=== PATIENT | male | born 1990 | race Caucasian/White ===

== ENCOUNTER 2016-08-30 11:10 | Emergency (ER) | payer SELFPAY ==
[~2016-08-30] VITALS: Ht 175.3 cm; Wt 65.8 kg
--- NOTE | 2016-08-30 11:29 | ED EENT ---
History of Present Illness General Stated Complaint: R EAR UNK FOREIGN OBJECT Source: patient Exam Limitations: no limitations History of Present Illness Time seen by provider: 11:28 Initial Comments PATIENT AWAKENED THIS MORNING WITH SENSATION OF FOREIGN BODY IN THE RIGHT EAR. uSE WATER AT HOME TO ATTEMPT TO REMOVE THIS. Timing/Duration: abrupt Severity: moderate Location: ear (R) Associated Symptoms: denies symptoms Allergies and Home Medications Allergies Coded Allergies: No Known Drug Allergies (Unverified , 04/23/11) Review of Systems Constitutional: see HPI Eyes: No Symptoms Reported Ears: See HPI Nose: no symptoms reported Mouth: no symptoms reported Throat: no symptoms reported Respiratory: no symptoms reported Cardiovascular: no symptoms reported Musculoskeletal: no symptoms reported Past Mjkwlxb-Hvztbi-Jnwoel Hx Patient Social History Recent Foreign Travel: No Contact w/Someone Who Travel: No Physical Exam General Appearance: WD/WN, no apparent distress Eyes: bilateral eye EOMI, bilateral eye PERRL, bilateral eye normal inspection Ears: right ear other (there is a cockroach in the external ear canal easily removed with alligator forceps), bilateral ear TM normal, bilateral ear auricle normal Neck: non-tender, full range of motion Respiratory: no respiratory distress, no accessory muscle use Gastrointestinal: normal bowel sounds, non tender, soft Neurologic/Psychiatric: alert, normal mood/affect, oriented x 3 Skin: normal color, warm/dry Departure Impression Impression: Primary Impression: Ear foreign body Disposition: 01 HOME, SELF-CARE Condition: Stable Departure-Patient Inst. Decision time for Depature: 11:29 Referrals: NO,LOCAL PHYSICIAN (PCP/Family) Primary Care Physician Patient Instructions: Foreign Body in Ear, Child Add. Discharge Instructions: 1. Antibiotic drops as directed Return to ER for any worsening Scripts Ciprofloxacin HCl/Dexameth (Ciprodex Otic Suspension) 7.5 Ml Soln 4 DROPS OT BID, #10 EA Prov: BECKI ZAMORA [employer] 08/30/16 BECKI ZAMORA [employer] Aug 30, 2016 11:29
[2016-08-30] MEDS ORDERED: NF-CIPDEC OT (11:30)
[2016-08-30 16:00] VITALS: BP 129/82
== END 2016-08-30 11:45 | disposition home or self-care (01) ==
LOC: EDUNIT# 11:10 → ER 11:12
DX: T16.1XXA Foreign body in right ear, initial encounter (principal)
CPT/HCPCS: 99282

== ENCOUNTER 2017-06-14 16:10 | Emergency (ER) | payer OTHER ==
[~2017-06-14] VITALS: Ht 185.4 cm; Wt 82.6 kg
[~2017-06-14 16:10] MED LIST: NF-CIPDEC OT
--- NOTE | 2017-06-14 17:11 | ED EENT ---
History of Present Illness General Chief Complaint: Eye Problems Stated Complaint: PINK EYE, BOTH EYES Nursing Triage Note: PT CO OF HAVING PINK EYE, EYES REDDEND BILATERALLY, HAVE CRUSTING, AND IRRITATION FOR 2 DAYS Source: patient Exam Limitations: no limitations History of Present Illness Date Seen by Provider: Jun 14, 2017 Time Seen by Provider: 17:11 Initial Comments 26-year-old male patient presents to the emergency department with complaints of possible pinkeye for 2 days. Timing/Duration: gradual Location: eye (R), eye (L) Prearrival Treatment: flushing eyes Allergies and Home Medications Allergies Coded Allergies: No Known Drug Allergies (Unverified , 04/23/11) Home Medications Tobramycin 5 Ml Drops, 2 DROPS OP Q4H Prescribed by: DMITRIY MAGAÑA on 06/14/17 3984 Patient Home Medication List Home Medication List Reviewed: Yes Review of Systems Constitutional: no symptoms reported Eyes: See HPI, Denies Blurred Vision, Drainage, Denies Decreased Acuity, Denies Foreign Body Sensation, Inflammation, Denies Pain, Denies Photophobia, Glasses Ears: No Symptoms Reported Nose: no symptoms reported Mouth: no symptoms reported Throat: no symptoms reported Respiratory: no symptoms reported Skin: no symptoms reported Neurological: No Symptoms Reported All Other Systems Reviewed Negative Unless Noted: Yes (Negative excepted noted.) Past Presoea-Qjfnkk-Bapjaw Hx Patient Social History Alcohol Use: Denies Use Recreational Drug Use: No Smoking Status: Never a Smoker 2nd Hand Smoke Exposure: No Recent Foreign Travel: No Contact w/Someone Who Travel: No Recent Infectious Disease Expo: No Recent Hopitalizations: No Physical Abuse: No Sexual Abuse: No Seasonal Allergies Seasonal Allergies: No Past Medical History Surgeries: No Respiratory: No Neurological: No Gastrointestinal: No Nursing Suicide Risk Score: 0 Family Medical History Reviewed and Corrections made No Pertinent Family Hx Physical Exam Vital Signs Vital Signs - First Documented 06/14/17 16:50 Temp 98.3 Pulse 80 Resp 18 B/P (MAP) 140/73 (95) Pulse Ox 95 General Appearance: WD/WN, no apparent distress Eyes: bilateral eye PERRL, bilateral eye EOMI, bilateral eye conjunctival inflammation, bilateral eye other (green drainage noted from the bilateral eyes. ) Ears: bilateral ear auricle normal, bilateral ear canal normal, bilateral ear TM normal Nose: normal inspection Mouth/Throat: normal mouth inspection, pharynx normal Neck: non-tender, supple, normal inspection Cardiovascular: regular rate, rhythm, no murmur Respiratory: lungs clear, normal breath sounds, no respiratory distress, no accessory muscle use Neurologic/Psychiatric: alert, normal mood/affect, oriented x 3 Skin: normal color, warm/dry Progress/Results/Core Measures Vital Signs/I&O 06/14/17 06/14/17 16:50 17:35 Temp 98.3 98.3 Pulse 80 80 Resp 18 18 B/P (MAP) 140/73 (95) 140/73 (95) Pulse Ox 95 95 Blood Pressure Mean: 95 Departure Impression Primary Impression: Conjunctivitis Qualified Codes: H10.33 - Unspecified acute conjunctivitis, bilateral Disposition: 01 HOME, SELF-CARE Condition: Improved Departure-Patient Inst. Decision time for Depature: 17:23 Referrals: NO,LOCAL PHYSICIAN (PCP) Primary Care Physician Patient Instructions: Conjunctivitis (Pinkeye) (DC) Add. Discharge Instructions: All discharge instructions reviewed with patient and/or family. Voiced understanding. Medications as instructed. Tylenol [id number] as directed for pain. Ibuprofen 800 mg by mouth every 8 hours as needed for pain. Use a warm, clean washcloth to wipe the eyes twice daily and as needed. Avoid cross contamination between the eyes by using clean washcloths. Follow- up with the configuration management administrator or cable ferry operator of your choice for recheck as an outpatient this week. Return to the emergency department for worsened symptoms or any other concerns. Scripts Tobramycin (Tobramycin) 5 Ml Drops 2 DROPS OP Q4H for 10 Days, #1 EA 0 Refills Prov: DMITRIY MAGAÑA 06/14/17 DMITRIY MAGAÑA Jun 14, 2017 17:11
[2017-06-14] MEDS ORDERED: TBR.3OP51 OP ×2 (17:23→17:27)
[2017-06-14 17:35] VITALS: BP 140/73
== END 2017-06-14 17:35 | disposition home or self-care (01) ==
LOC: EDUNIT# 16:10 → ER 16:12
DX: H10.9 Unspecified conjunctivitis (principal)
CPT/HCPCS: 99282

== ENCOUNTER 2018-08-02 21:27 | Emergency (ER) | payer SELFPAY ==
[~2018-08-02] VITALS: Ht 188 cm; Wt 86.2 kg
[~2018-08-02 21:27] MED LIST changes: +TBR.3OP51 OP
[2018-08-02] MEDS ORDERED: CYCLOBENZAPRINE 10 MG (FLEXERIL) TAB PO SCH (21:45)
[2018-08-02] MEDS ORDERED: KETOROLAC 60 MG/2 ML VIAL IM ONE (21:45)
--- NOTE | 2018-08-02 21:58 | ED Neck-Back Pain/Injury ---
General Chief Complaint: Head/Cervical Problems Stated Complaint: NECK PAIN Nursing Triage Note: RIGHT SIDED NECK PAIN, NO INJURY Nursing Sepsis Screen: No Definite Risk Source of Information: Patient Exam Limitations: No Limitations History of Present Illness Date Seen by Provider: August 02, 2018 Time Seen by Provider: 21:37 Initial Comments 27-year-old male who presents to the emergency room with complaints of right- sided neck pain that started around 6:30 this morning when he woke up. He believes he slept on his neck wrong. He denies injury. Location: C-Spine Timing/Duration: 12-24 Hours Severity: Moderate Pain/Injury Location: Neck Associated Symptoms: denies symptoms Allergies and Home Medications Allergies Coded Allergies: No Known Drug Allergies (Unverified , 04/23/11) Patient Home Medication List Home Medication List Reviewed: Yes Review of Systems Constitutional: see HPI; No chills, No fever Musculoskeletal: see HPI, neck pain All Other Systems Reviewed Negative Unless Noted: Yes Past Kvqluku-Qwfejj-Dvdqwj Hx Past Med/Social Hx: Reviewed Nursing Past Med/Soc Hx Patient Social History Alcohol Use: Denies Use Recreational Drug Use: No Smoking Status: Never a Smoker 2nd Hand Smoke Exposure: Yes Recent Foreign Travel: No Contact w/Someone Who Travel: No Recent Infectious Disease Expo: No Recent Hopitalizations: No Immunizations Up To Date Tetanus Booster (TDap): Unknown Seasonal Allergies Seasonal Allergies: No Past Medical History Surgeries: No Respiratory: No Cardiac: No Neurological: No Genitourinary: No Gastrointestinal: No Musculoskeletal: No Endocrine: No HEENT: No Cancer: No Psychosocial: No Integumentary: No Blood Disorders: No Family Medical History Reviewed Nursing Family Hx No Pertinent Family Hx Physical Exam Vital Signs Vital Signs - First Documented 08/02/18 21:30 Temp 98.0 Pulse 85 Resp 18 B/P (MAP) 146/68 (94) Pulse Ox 98 O2 Delivery Room Air Capillary Refill : Less Than 3 Seconds Height, Weight, BMI Height: 6'2.00" Weight: 190lbs. oz. 86.416844kr; BMI Method:Stated General Appearance: No Apparent Distress, WD/WN Neck: Full Range of Motion, Normal Inspection, Non Tender, Supple Cardiovascular: Regular Rate, Rhythm, No Edema, No Gallop, No JVD, No Murmur, Normal Peripheral Pulses Respiratory: Chest Non Tender, Lungs Clear, Normal Breath Sounds, No Accessory Muscle Use, No Respiratory Distress, Accessory Muscle Use Extremity: Normal Capillary Refill Neurologic/Psychiatric: Alert, Oriented x3, Normal Mood/Affect Skin: Normal Color, Warm/Dry Progress/Results/Core Measures Results/Orders My Orders Orders - EDWARD BELLE Ketorolac Injection (Toradol Injection) (08/02/18 21:45) Cyclobenzaprine Tablet (Flexeril Tablet) (08/02/18 21:45) Medications Given in ED Current Medications Medications Dose Ordered Sig/Rod Route Start Time Stop Time Status Last Admin Dose Admin Ketorolac Tromethamine 60 mg ONCE ONCE IM 08/02/18 21:45 08/02/18 21:46 DC 08/02/18 21:44 60 MG Vital Signs/I&O 08/02/18 08/02/18 21:30 21:44 Temp 98.0 98.0 Pulse 85 Resp 18 B/P (MAP) 146/68 (94) Pulse Ox 98 O2 Delivery Room Air Blood Pressure Mean: 94 Progress Progress Note : Time: 22:10 Progress Note I have seen and evaluated the patient. His symptoms have improved after medication use. He agrees with plan of care, plans for discharge, return precautions were given. Departure Impression Primary Impression: Neck pain Disposition: 01 HOME, SELF-CARE Condition: Stable/Unchanged Departure-Patient Inst. Decision time for Depature: 22:09 Referrals: NO,LOCAL PHYSICIAN (PCP/Family) Primary Care Physician Patient Instructions: Neck Pain Add. Discharge Instructions: You may alternate ice and heat at 20 minute intervals. Take medication as directed. You may use ibuprofen and Tylenol as directed by the bottle for pain relief. Return back to the emergency room for worsening symptoms or concerns as needed. Follow-up with her primary care provider as needed. All discharge instructions reviewed with patient and/or family. Voiced understanding. Scripts Cyclobenzaprine HCl (Cyclobenzaprine HCl) 10 Mg Tablet 10 MG PO Q8H PRN for SPASMS, #15 TAB 0 Refills Prov: EDWARD BELLE 08/02/18 Work/School Note: Work Release Form Date Seen in the Emergency Department: August 02, 2018 Return to Work: August 03, 2018 Restrictions: No Restrictions EDWARD BELLE August 02, 2018 21:58
[2018-08-02] MEDS ORDERED: CYCL10TA9 PO (22:10)
[2018-08-02 22:13] VITALS: BP 146/68
== END 2018-08-02 22:12 | disposition home or self-care (01) ==
LOC: EDUNIT# 21:27 → ER 21:28
DX: M54.2 Cervicalgia (principal); Z77.22 Contact with and (suspected) exposure to environmental tobacco smoke (acute) (chronic)
CPT/HCPCS: 96372; 99284

== ENCOUNTER 2018-08-09 15:53 | Emergency (ER) | payer SELFPAY ==
[~2018-08-09] VITALS: Ht 180.3 cm; Wt 86.2 kg
[~2018-08-09 15:53] MED LIST changes: +CYCL10TA9 PO
[2018-08-09] MEDS ORDERED: NAPR-1071 PO (16:22)
[2018-08-09] MEDS ORDERED: CYCL10TA9 PO (16:22)
--- NOTE | 2018-08-09 16:23 | ED Back Pain ---
General Chief Complaint: Back Problems Stated Complaint: BACK PAIN Nursing Triage Note: THE PT IS AMBULATORY TO THE ROOM WITHOUT DIFFICULTY. NO DISTRESS IS SEEN ON ARRIVAL. LOC IS NORMAL FOR THE PT. THE REPORTS NO RECENT INJURY. Nursing Sepsis Screen: No Definite Risk Source of Information: Patient Exam Limitations: No Limitations History of Present Illness Date Seen by Provider: Aug 09, 2018 Time Seen by Provider: 16:19 Initial Comments To ER with reports of low back pain that is midline and somewhat to the right side low back. It does not radiate down either legs, no fevers or chills, no IV drug use no history of cancer no loss of sensation of genitals, no loss of control of bowel or bladder. He got L no preceding trauma. States that he works at [employer] and was told not come back until he is working releasing him. This pain began at 11 PM last night Location: Lumbar Spine, Paraspinous Muscles Timing/Duration: 1-2 Days Severity: Moderate Associated Symptoms: lower back pain Allergies and Home Medications Allergies Coded Allergies: No Known Drug Allergies (Unverified , 04/23/11) Home Medications Cyclobenzaprine HCl 10 Mg Tablet, 10 MG PO Q8H PRN for SPASMS Prescribed by: EDWARD BELLE on 08/02/18 2210 Patient Home Medication List Home Medication List Reviewed: Yes Review of Systems Constitutional: see HPI EENTM: see HPI Respiratory: no symptoms reported Cardiovascular: no symptoms reported Genitourinary: no symptoms reported Musculoskeletal: see HPI, back pain Skin: no symptoms reported Psychiatric/Neurological: No Symptoms Reported Past Wddzbnp-Gfcyez-Qlpmum Hx Patient Social History 2nd Hand Smoke Exposure: Yes Recent Foreign Travel: No Contact w/Someone Who Travel: No Recent Infectious Disease Expo: No Recent Hopitalizations: No Physical Abuse: No Sexual Abuse: No Mistreated: No Fear: No Immunizations Up To Date Tetanus Booster (TDap): Unknown Seasonal Allergies Seasonal Allergies: No Past Medical History Surgeries: No Respiratory: No Cardiac: No Neurological: No Genitourinary: No Gastrointestinal: No Musculoskeletal: No Endocrine: No HEENT: No Cancer: No Psychosocial: No Integumentary: No Blood Disorders: No Family Medical History No Pertinent Family Hx Physical Exam Vital Signs Vital Signs - First Documented 08/09/18 16:06 Temp 98.5 Pulse 83 Resp 16 B/P (MAP) 118/75 (89) Capillary Refill : Less Than 3 Seconds Height, Weight, BMI Height: 5'11.00" Weight: 190lbs. oz. 86.096794nq; BMI Method:Estimated General Appearance: No Apparent Distress, WD/WN Respiratory: No Accessory Muscle Use, No Respiratory Distress Gastrointestinal: Non Tender, Soft Back: Normal Inspection Extremity: Normal Capillary Refill, Normal Inspection Neurologic/Psychiatric: Alert, Oriented x3 Skin: Normal Color, Warm/Dry Progress/Results/Core Measures Results/Orders Vital Signs/I&O 08/09/18 16:06 Temp 98.5 Pulse 83 Resp 16 B/P (MAP) 118/75 (89) Blood Pressure Mean: 89 Departure Impression Primary Impression: Acute low back pain Qualified Codes: M54.5 - Low back pain Disposition: 01 HOME, SELF-CARE Condition: Stable Departure-Patient Inst. Decision time for Depature: 16:20 Referrals: NO,LOCAL PHYSICIAN (PCP/Family) Primary Care Physician Patient Instructions: Low Back Pain (DC) Add. Discharge Instructions: 1. Warm compresses to this area 2. Medication as directed 3. Follow-up with your doctor next week. If you do not have one. He he'll be contacted at [phone]. All discharge instructions reviewed with patient and/or family. Voiced understanding. Scripts Naproxen (Naprosyn) 500 Mg Tablet 500 MG PO BID PRN for PAIN-MODERATE TO SEVERE, #30 TAB 0 Refills Prov: BECKI ZAMORA APRN 08/09/18 Cyclobenzaprine HCl (Cyclobenzaprine HCl) 10 Mg Tablet 10 MG PO Q8H PRN for SPASMS, #15 TAB 0 Refills Prov: BECKI ZAMORA APRN 08/09/18 Work/School Note: Work Release Form Date Seen in the Emergency Department: Aug 09, 2018 Return to Work: Aug 11, 2018 Restrictions: No Restrictions Images Torso/Trunk 1 - Other-See Progress Note BECKI ZAMORA APRN Aug 09, 2018 16:23
[2018-08-09 16:30] VITALS: BP 118/75
== END 2018-08-09 16:30 | disposition home or self-care (01) ==
LOC: EDUNIT# 15:53 → ER 15:54
DX: M54.5 Low back pain (principal); Z77.22 Contact with and (suspected) exposure to environmental tobacco smoke (acute) (chronic)
CPT/HCPCS: 99281

== ENCOUNTER 2018-08-16 20:39 | Emergency (ER) | payer SELFPAY ==
[~2018-08-16] VITALS: Ht 188 cm; Wt 93.0 kg
[~2018-08-16 20:39] MED LIST changes: +NAPR-1071 PO
[2018-08-16] MEDS ORDERED: IBUPROFEN 800 MG (MOTRIN) TAB PO STA (21:18)
--- NOTE | 2018-08-16 21:29 | Diagnostic Imaging Report ---
INDICATION: Intermittent left ankle pain starting 3 days ago. No injury. TECHNIQUE: Three views of the left ankle CORRELATION STUDY: None FINDINGS: The bony alignment is anatomic. The talar dome is intact. The ankle mortise is maintained. There is no acute fracture or dislocation. Soft tissues are unremarkable. IMPRESSION: Negative for acute bony abnormality of the ankle. Dictated by: Dictated on workstation # [id number]
--- NOTE | 2018-08-16 22:16 | ED Lower Extremity ---
General Chief Complaint: Lower Extremity Stated Complaint: L ANKLE PAIN Nursing Triage Note: PT COMPLAINING OF INTERMITTENT LEFT ANKLE PAIN THAT STARTED 3 DAYS AGO, NO INJURY Nursing Sepsis Screen: No Definite Risk History of Present Illness Date Seen by Provider: Aug 16, 2018 Time Seen by Provider: 21:15 Initial Comments 27-year-old male presents for left ankle pain. He states it began 3 days ago without injury. He denies any past history of ankle problems. He has had Tylenol with minimal improvement in his symptoms. Pain/Injury Location: left ankle Method of Injury: unknown Allergies and Home Medications Allergies Coded Allergies: No Known Drug Allergies (Unverified , 04/23/11) Home Medications Cyclobenzaprine HCl 10 Mg Tablet, 10 MG PO Q8H PRN for SPASMS Prescribed by: EDWARD BELLE on 08/02/18 221 Cyclobenzaprine HCl 10 Mg Tablet, 10 MG PO Q8H PRN for SPASMS Prescribed by: BECKI ZAMORA on 08/09/18 162 Naproxen 500 Mg Tablet, 500 MG PO BID PRN for PAIN-MODERATE TO SEVERE Prescribed by: BECKI ZAMORA on 08/09/18 1622 Patient Home Medication List Home Medication List Reviewed: Yes Review of Systems Constitutional: no symptoms reported, see HPI Musculoskeletal: see HPI, joint pain (left ankle) All Other Systems Reviewed Negative Unless Noted: Yes Past Hsvqyox-Urkovi-Prieyc Hx Past Med/Social Hx: Reviewed Nursing Past Med/Soc Hx Patient Social History 2nd Hand Smoke Exposure: Yes Recent Foreign Travel: No Contact w/Someone Who Travel: No Recent Infectious Disease Expo: No Recent Hopitalizations: No Immunizations Up To Date Tetanus Booster (TDap): Unknown Seasonal Allergies Seasonal Allergies: No Past Medical History Surgeries: No Respiratory: No Cardiac: No Neurological: No Genitourinary: No Gastrointestinal: No Musculoskeletal: No Endocrine: No HEENT: No Cancer: No Psychosocial: No Integumentary: No Blood Disorders: No Family Medical History No Pertinent Family Hx Physical Exam Vital Signs Vital Signs - First Documented 08/16/18 20:55 Temp 98.5 Pulse 73 Resp 18 B/P (MAP) 122/63 (82) Pulse Ox 98 O2 Delivery Room Air Capillary Refill : Less Than 3 Seconds Height, Weight, BMI Height: 6'2.00" Weight: 205lbs. oz. 92.130390ly; BMI Method:Stated General Appearance: WD/WN, no apparent distress Cardiovascular: normal peripheral pulses, regular rate, rhythm Respiratory: chest non-tender, lungs clear Ankles: left ankle non-tender, left ankle normal inspection, left ankle normal range of motion, left ankle no evidence of injury Neurologic/Psychiatric: no motor/sensory deficits, alert, normal mood/affect, oriented x 3 Skin: normal color, warm/dry Progress/Results/Core Measures Results/Orders My Orders Orders - OMA CHRISTOPHER Ankle, Left, 3 Views (08/16/18 21:11) Ibuprofen Tablet (Motrin Tablet) (08/16/18 21:18) Vital Signs/I&O 08/16/18 08/16/18 20:55 22:21 Temp 98.5 Pulse 73 70 Resp 18 16 B/P (MAP) 122/63 (82) 122/63 (82) Pulse Ox 98 99 O2 Delivery Room Air Room Air Blood Pressure Mean: 82 Diagnostic Imaging Diagonstic Imaging: Xray Plain Films/CT/US/NM/MRI: ankle Comments NAME: ANAIS BLAIR [facility] REC#: [id number] PT STATUS: REG ER : 1990 PHYSICIAN: OMA CHRISTOPHER ADMIT DATE: 08/16/18/ER Signed Date of Exam: 08/16/18 ANKLE, LEFT, 3 VIEWS INDICATION: Intermittent left ankle pain starting 3 days ago. No injury. TECHNIQUE: Three views of the left ankle CORRELATION STUDY: None FINDINGS: The bony alignment is anatomic. The talar dome is intact. The ankle mortise is maintained. There is no acute fracture or dislocation. Soft tissues are unremarkable. IMPRESSION: Negative for acute bony abnormality of the ankle. Dictated by: Dictated on workstation # [id number] Dict: 08/16/[id number] Trans: 08/16/182152 Interpreted by: MIA YEUNG DO Electronically signed by: MIA YEUNG DO 08/16/182152 Reviewed: Reviewed by Me Departure Impression Primary Impression: Left ankle pain Qualified Codes: M25.572 - Pain in left ankle and joints of left foot Disposition: HOME, SELF-CARE Condition: Improved Departure-Patient Inst. Decision time for Depature: 22:00 Referrals: NO,LOCAL PHYSICIAN (PCP/Family) Primary Care Physician Patient Instructions: Ankle Sprain (DC) Add. Discharge Instructions: Ice to left ankle 20 minutes every 2 hours while awake. Use Chepe wrap for the next 2-3 days. Ibuprofen 600 mg every 8 hours. Follow-up with primary care provider if your symptoms are not improving or worsen. Return to emergency department for new, urgent health care problems. All discharge instructions reviewed with patient and/or family. Voiced understanding. OMA CHRISTOPHER Aug 16, 2018 22:16
[2018-08-16 22:21] VITALS: BP 122/63
== END 2018-08-16 22:25 | disposition home or self-care (01) ==
LOC: EDUNIT# 20:39 → ER 20:40
DX: M25.572 Pain in left ankle and joints of left foot (principal); Z77.22 Contact with and (suspected) exposure to environmental tobacco smoke (acute) (chronic)
CPT/HCPCS: 73610